=== PATIENT | male | born 1980 | race Caucasian/White ===

== ENCOUNTER 2025-04-19 11:14 | Outpatient (CLI) | payer SELFPAY | END 2025-04-19 11:15 | disposition home or self-care (01) | PROVIDERS: PCP Family Medicine; Visit Provider Family Medicine | DX: R42 Dizziness and giddiness (principal); M25.579 Pain in unspecified ankle and joints of unspecified foot; Z13.6 Encounter for screening for cardiovascular disorders | CPT/HCPCS: 80053; 80061; 86038; 86431; 86618 ==

== ENCOUNTER 2025-05-17 14:28 | Outpatient (CLI) | payer OTHER, SELFPAY ==
--- NOTE | 2025-05-17 14:45 | CRLHL7_ITS ---
For Patients: As a result of the Century Cures Act, medical imaging exams and procedure reports are released immediately into your electronic medical record. You may view this report before your referring provider. If you have questions, please contact your health care provider. INDICATION: Right testicle mass, right testicular pain COMPARISON: none TECHNIQUE: Orellana scale imaging was performed of the scrotum. In addition color Doppler and spectral Doppler analysis was performed of the testes. FINDINGS: The testes demonstrate normal arterial and venous blood flow on color Doppler and spectral Doppler analysis. The testes have uniform echogenicity with no evidence of a suspicious mass or area of inflammation. The right testis measures 4.5 x 2.4 x 3.2 cm in size and the left testis measures 4.4 x 2.3 x 2.9 cm. The epididymis appears normal bilaterally. There is no evidence of a hydrocele or varicocele. IMPRESSION: Normal scrotal ultrasound. Dictated by Gagan Guevara MD @ 05/17/2025 3:16:52 PM (Electronically Signed)
== END 2025-05-17 14:29 | disposition home or self-care (01) ==
PROVIDERS: PCP Family Medicine; Visit Provider Family Medicine
DX: N50.89 Other specified disorders of the male genital organs (principal)
CPT/HCPCS: 76870; 93976